=== PATIENT | male | born 2000 | race Caucasian/White ===

== ENCOUNTER → 2020-11-21 | Outpatient (CLI) | payer OTHER ==
--- NOTE | 2020-11-21 11:19 | KCIC ---
MRI STUDY OF THE RIGHT SHOULDER WITHOUT CONTRAST Clinical indications: Anterior and posterior right shoulder pain for one month. No known injury. TECHNIQUE: Noncontrast MRI sequences of the right shoulder were performed in all 3 planes. FINDINGS: No rotator cuff tear is seen. The subscapularis tendon is intact. The tendon of the long he ad of biceps is intact. No muscle atrophy or edema is seen. Mild degenerative spurring and osteoarthr itis of the AC joint is seen. Small spur of the lateral inferior edge of the acromial process is seen . Type III acromial process is seen. These findings may impinge the acromial humeral space. No subdel toid or subacromial bursitis is seen. The glenohumeral joint is normally aligned. The glenohumeral shauna int is unremarkable. No significant joint effusion and no loose body is seen. The glenoid labrum is i ntact. No paralabral ganglion cyst or spinoglenoid notch ganglion cyst is seen. IMPRESSION: Impingement of the acromial humeral space. No subdeltoid or subacromial bursitis is seen. No rotator cuff tear is evident. Electronically signed by: Julian Fox MD (11/21/2020 11:16 AM) [place] [id number]
== END ==
LOC: KCIC MRI 09:06
PROVIDERS: ATTEND Physician Assistant Medical
DX: M25.811 Other specified joint disorders, right shoulder (principal)
CPT/HCPCS: 73221